=== PATIENT | male | born 1985 | race Hispanic/Latino ===

== ENCOUNTER 2022-01-19 08:35 | Emergency (ER) | payer OTHER, MEDICAID ==
[~2022-01-19] VITALS: Ht 167.6 cm; Wt 81.8 kg
[2022-01-19] MEDS ORDERED: NAPROXEN500 MG PO (09:02)
[2022-01-19 09:04] VITALS: BP 154/89
== END 2022-01-19 09:17 | disposition home or self-care (01) | DRG 605 ==
LOC: EDBD 08:35 → ED 08:35
DX: S90.31XA Contusion of right foot, initial encounter (principal); W20.8XXA Other cause of strike by thrown, projected or falling object, initial encounter; Y92.59 Other trade areas as the place of occurrence of the external cause; Y99.0 Civilian activity done for income or pay